=== PATIENT | female | born 1960 | race Caucasian/White ===

== ENCOUNTER → 2024-08-12 15:00 | Outpatient (CLI) | payer OTHER, SELFPAY ==
--- NOTE | 2024-08-12 15:02 | DI.RAD.S_ITS ---
PROCEDURE: XR CHEST 2V INDICATIONS: SOB TECHNIQUE: 2 views of the chest were acquired. COMPARISON: None. FINDINGS: Surgical changes and devices: None. Lungs and pleura: Lungs appear clear. No pleural effusions or pneumothorax. Mediastinum: Mediastinal contours are normal. Heart size is normal. Bones and chest wall: No suspicious bony abnormalities. Soft tissues appear unremarkable. IMPRESSION: No acute cardiopulmonary abnormality is seen. Dictated by: Fili Guerra M.D. on 08/12/2024 at 16:14 Approved by: Fili Guerra M.D. on 08/12/2024 at 16:16
== END ==
LOC: RAD 15:01
PROVIDERS: Referring Provider Physician Assistant Surgical; Visit Provider Physician Assistant Surgical
DX: R06.02 Shortness of breath (principal)
CPT/HCPCS: 71046